=== PATIENT | male | born 1995 | race African-American/Black ===

== ENCOUNTER 2021-03-05 12:33 | Emergency (ER) | payer SELFPAY ==
[2021-03-05] MEDS ORDERED: Lidocaine 1% w/Epinephrine 1:100K 20 ML VIAL ONE (14:47)
[2021-03-05] MEDS ORDERED: Boostrix 0.5 ML (Tdap) VIAL ONE (15:23)
== END 2021-03-05 15:38 | disposition home or self-care (01) ==
LOC: CSHERS 12:33
DX: S41.012A Laceration without foreign body of left shoulder, initial encounter (principal); Z87.891 Personal history of nicotine dependence; W26.0XXA Contact with knife, initial encounter
CPT/HCPCS: 12002; 71045; 90471; 90715